=== PATIENT | male | born 1965 | race Caucasian/White ===

== ENCOUNTER 2024-04-10 06:48 | Day surgery (SDC) | payer MEDICAID ==
[~2024-04-10 06:48] MED LIST: Sodium Chloride 0.9% 10 ML Syringe FLUSH PRN
[2024-04-10] MEDS ORDERED: Sodium Chloride 0.9% 10 ML Syringe IV ONE (06:49)
[2024-04-10] MEDS ORDERED: fentaNYL 100 MCG/2 ML SDV IV ONE (06:49)
[2024-04-10] MEDS ORDERED: Midazolam 1 MG/ML 2 ML SDV IV ONE (06:49)
[2024-04-10] MEDS: Lactated Ringers 1,000 ML IV PRN (07:38)
[2024-04-10] MEDS: acetaZOLAMIDE 500 MG Cap.ER PO ONE (09:19)
== END 2024-04-10 09:50 | disposition home or self-care (01) ==
LOC: FB.SDS 06:48
PROVIDERS: ATTEND Ophthalmology
DX: E11.36 Type 2 diabetes mellitus with diabetic cataract (principal); H25.813 Combined forms of age-related cataract, bilateral; H04.123 Dry eye syndrome of bilateral lacrimal glands; H52.13 Myopia, bilateral; H52.223 Regular astigmatism, bilateral; I10 Essential (primary) hypertension; I48.19 Other persistent atrial fibrillation; Z79.01 Long term (current) use of anticoagulants; Z79.899 Other long term (current) drug therapy
CPT/HCPCS: 00142; 82947; A9270-GY; J2250; J3010; J7120; V2632

== ENCOUNTER 2024-04-24 06:56 | Day surgery (SDC) | payer MEDICAID ==
[2024-04-24] MEDS ORDERED: Midazolam 1 MG/ML 2 ML SDV IV ONE (06:57)
[2024-04-24] MEDS ORDERED: fentaNYL 100 MCG/2 ML SDV IV ONE (06:57)
[2024-04-24] MEDS ORDERED: Sodium Chloride 0.9% 10 ML Syringe FLUSH PRN (07:00)
[2024-04-24] MEDS: Lactated Ringers 1,000 ML IV SCH (07:49)
[2024-04-24] MEDS: acetaZOLAMIDE 500 MG Cap.ER PO ONE (09:26)
== END 2024-04-24 09:52 | disposition home or self-care (01) ==
LOC: FB.SDS 06:56
PROVIDERS: ATTEND Ophthalmology
DX: E11.36 Type 2 diabetes mellitus with diabetic cataract (principal); H25.13 Age-related nuclear cataract, bilateral; H26.8 Other specified cataract; E11.42 Type 2 diabetes mellitus with diabetic polyneuropathy; I10 Essential (primary) hypertension; I48.19 Other persistent atrial fibrillation; Z79.899 Other long term (current) drug therapy
CPT/HCPCS: 66982; 82947; A9270; J2250; J3010; J7120; V2632; 00142

== ENCOUNTER 2024-06-04 07:02 | Day surgery (SDC) | payer MEDICAID ==
[2024-06-04] MEDS ORDERED: Lidocaine 2% 100 MG/5 ML Syringe IVPUSH ONE (07:03)
[2024-06-04] MEDS ORDERED: Propofol 200 MG/20 ML SDV IV ONE (07:03)
[2024-06-04] MEDS: Lactated Ringers 1,000 ML IV SCH (07:50)
[2024-06-04] MEDS: Simethicone Drops 40 MG/0.6 ML 30 ML Bottle ONE (08:18)
== END 2024-06-04 09:37 | disposition home or self-care (01) ==
LOC: FB.SDS 07:02
PROVIDERS: ATTEND Surgery
DX: D12.6 Benign neoplasm of colon, unspecified (principal); K63.5 Polyp of colon; D64.9 Anemia, unspecified; I10 Essential (primary) hypertension; E11.9 Type 2 diabetes mellitus without complications; R63.4 Abnormal weight loss; Z79.84 Long term (current) use of oral hypoglycemic drugs; Z79.899 Other long term (current) drug therapy; Z88.8 Allergy status to other drugs, medicaments and biological substances
CPT/HCPCS: 45384; 45385; 82947; 88305; A9270; J2704; J7120; 00811